=== PATIENT | female | born 1955 | race Caucasian/White ===

== ENCOUNTER 2018-01-01 13:52 | Emergency (ER) | payer OTHER ==
[~2018-01-01] VITALS: Ht 157.5 cm; Wt 55.8 kg
--- NOTE | 2018-01-01 15:46 | CT SCAN REPORT ---
EXAMINATION: CT HEAD AND CERVICAL SPINE. CLINICAL INFORMATION: Fall. Question intracranial hemorrhage. COMPARISON: No relevant prior imaging. TECHNIQUE: Medical Research Assistant images were obtained. CT acquisition of the head and cervical spine was performed without intravenous administration of contrast. Data was reformatted into multiplanar images at the acquisition workstation. DLP: 910.61 mGy-cm. FINDINGS: Head: There is no acute intracranial hemorrhage or abnormal extra-axial collection. No intracranial mass effect or midline shift. Lateral and third ventricles are normal. No hydrocephalus. Puentes-white matter differentiation is grossly preserved and there is no evidence of acute territorial infarct. There is mild swelling of the frontal scalp. The calvarium and skull base are intact. Mastoid air cells and middle ear cavities are well aerated. Visualized paranasal sinuses are well aerated. Cervical spine: There is near-anatomic alignment and position of the vertebral bodies and posterior elements of the cervical spine in the sagittal dimension. 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 Vertebral body heights are preserved. No evidence of acute fracture. No abnormal prevertebral soft tissue swelling. Grossly no evidence of canal compromise uncovertebral joint spurring at C5-C6 causes mild bilateral bony neuroforaminal encroachment. Soft tissues of the neck including the thyroid gland are unremarkable. Visualized lung apices are clear. IMPRESSION: Head: Mild swelling of the frontal scalp. No associated calvarial fracture. No acute intracranial hemorrhage. Cervical spine: No acute cervical spine fracture.
[2018-01-01 16:14] VITALS: BP 160/90
--- NOTE | 2018-01-01 16:22 | ED HEAD/FACIAL INJ COMPLAINT ---
History of Present Illness General Chief Complaint: Fall Stated Complaint: LANDERS, NECK AND SHOULDER PAIN S/P FALL Source: patient Exam Limitations: no limitations Vital Signs & Intake/Output Vital Signs & Intake/Output Vital Signs Date Time Temp Pulse Resp B/P B/P Pulse O2 O2 Flow FiO2 Mean Ox Delivery Rate 01/01 1627 Room Air 01/01 1614 98 18 160/90 99 Room Air 01/01 1357 97.1 78 20 135/80 97 Room Air Allergies Coded Allergies: amoxicillin (From AUGMENTIN) (RASH 01/01/18) bupropion (From WELLBUTRIN) (UNKNOWN 01/01/18) clavulanic acid (From AUGMENTIN) (RASH 01/01/18) doxycycline (UPSET STOMACH 01/01/18) epinephrine (RAPID PULSE 01/01/18) erythromycin base (RASH 01/01/18) hydrochlorothiazide (UNKNOWN 01/01/18) pneumococcal vaccine (SWELLING 01/01/18) tetracycline (From ACHROMYCIN) (RASH 01/01/18) Uncoded Allergies: FLU VACCINE (UPSET STOMACH 01/01/18) IRON SULFATE (UNKNOWN 01/01/18) Triage Note: PT TO ED C/O NECK AND RIGHT SHOULDER PAIN S/P FALLING OFF HER RETAINING WALL THIS AM. HIT HEAD, DENIES LOC. ABRASIONS NOTED TO SHOULDER, RFA, R KNEE, HEMATOMA NOTED TO FOREHEAD. NO C-SPINE TENDERNESS ON PALPATION. Triage Nurses Notes Reviewed? yes Onset: Abrupt Severity: mild Loss of Consciousness: no loss of consciousness HPI: 62-year-old female comes into the emergency room for evaluation of head injury. Patient reports that she was standing on a retaining wall In her yard. She reports that she fell off of it and fell forward onto the leaves and grass and hit her forehead. She felt a crunch in her neck. No loss of consciousness. Mild headache. No vomiting. She went to see her orthopedic doctor. He didn't x-ray of her right shoulder She has some mild shoulder pain. He sent her to the hospital for CT scan of her head and neck. She has a history of von Willebrand' s disease. No anticoagulants. Comes in for further evaluation. (Jelani ROGER,Saul) Past History Travel History Traveled to [place] past 21 day No Medical History Any Pertinent Medical History? see below for history Cardiovascular: hypertension, von willebrand avm Gastrointestinal: irritable bowel syndrome, gi bleed Blood Disorders: anemia Surgical History Surgical History: non-contributory Psychosocial History What is your primary language Bermudian Tobacco Use: Current Daily Use Daily Tobacco Use Amount/Type: =< 4 Cigarettes daily ETOH Use: denies use Illicit Drug Use: denies illicit drug use Family History Hx Contributory? No (Saul Ramos) Review of Systems Review of Systems Constitutional: Reports: no symptoms. EENTM: Reports: no symptoms. Respiratory: Reports: no symptoms. Cardiovascular: Reports: no symptoms. GI: Reports: no symptoms. Genitourinary: Reports: no symptoms. Musculoskeletal: Reports: see HPI. Skin: Reports: no symptoms. Neurological/Psychological: Reports: see HPI. Hematologic/Endocrine: Reports: no symptoms. Immunologic/Allergic: Reports: no symptoms. All Other Systems: Reviewed and Negative (Saul Ramos) Physical Exam Physical Exam General Appearance: well developed/nourished, mild distress Head: ecchymosis (FRONTAL BONE), tenderness Eyes: Bilateral: normal appearance, PERRL, EOMI. Ears, Nose, Throat: normal ENT inspection, hearing grossly normal Neck: normal inspection Respiratory: normal breath sounds, no respiratory distress Cardiovascular: regular rate/rhythm Back: normal inspection Extremities: normal inspection, normal range of motion, no edema Psychiatric: awake, alert, oriented x 3 Cranial Nerves: normal hearing, normal speech, PERRL Coordination/Gait: normal gait Motor/Sensory: no motor/sensory deficits Skin: intact, normal color, warm/dry (Saul Ramos) Progress Differential Diagnosis: corneal abrasion, c-spine injury, facial fracture, globe injury, ICH, orbit fracture, skull fracture Plan of Care: Current Medications Sig/King Start time Last Medication Dose Stop Time Status Admin Acetaminophen 975 MG ONCE ONE 01/01 1630 AC (Tylenol) 01/01 1631 Diagnostic Imaging: Viewed by Me: CT Scan. Discussed w/RAD: CT Scan. Comments: PATIENT: VIDYA FORD PRESENT AGE: 62 PATIENT ACCOUNT NO: [id number] : 55 LOCATION: [facility] ORDERING PHYSICIAN: Dacia ROGER SERVICE DATE: 01/01/18847 EXAM TYPE: CAT - CT CERV SPINE WO IV CONTRAST; CT HEAD WO IV CONTRAST EXAMINATION: CT HEAD AND CERVICAL SPINE. CLINICAL INFORMATION: Fall. Question intracranial hemorrhage. COMPARISON: No relevant prior imaging. TECHNIQUE: Business Unit Director images were obtained. CT acquisition of the head and cervical spine was performed without intravenous administration of contrast. Data was reformatted into multiplanar images at the acquisition workstation. DLP: 910.61 mGy-cm. FINDINGS: Head: There is no acute intracranial hemorrhage or abnormal extra-axial collection. No intracranial mass effect or midline shift. Lateral and third ventricles are normal. No hydrocephalus. Puentes-white matter differentiation is grossly preserved and there is no evidence of acute territorial infarct. There is mild swelling of the frontal scalp. The calvarium and skull base are intact. Mastoid air cells and middle ear cavities are well aerated. Visualized paranasal sinuses are well aerated. Cervical spine: There is near-anatomic alignment and position of the vertebral bodies and posterior elements of the cervical spine in the sagittal dimension. 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 Vertebral body heights are preserved. No evidence of acute fracture. No abnormal prevertebral soft tissue swelling. Grossly no evidence of canal compromise uncovertebral joint spurring at C5-C6 causes mild bilateral bony neuroforaminal encroachment. Soft tissues of the neck including the thyroid gland are unremarkable. Visualized lung apices are clear. IMPRESSION: Head: Mild swelling of the frontal scalp. No associated calvarial fracture. No acute intracranial hemorrhage. Cervical spine: No acute cervical spine fracture. DICTATED BY: Claudio Oscar MD DATE/TIME DICTATED:01/01/181537 KNOTTING MACHINE OPERATOR PORTABLE:PATI DATE/TIME TRANSCRIBED:01/01/181537 CONFIDENTIAL, DO NOT COPY WITHOUT APPROPRIATE AUTHORIZATION. <Electronically signed in Other Vendor System> SIGNED BY: Claudio Oscar MD 01/01 4862 (Saul Ramos) Departure Departure Disposition: HOME OR SELF CARE Condition: Stable Clinical Impression Primary Impression: Head injury Referrals: Carlos Jin MD (PCP/Family) Additional Instructions: Follow-up with primary care doctor. Return if any concerns worsening symptoms. Please go over all results of today's visit with your primary care doctor. Contact your primary care doctor to let them know you were here in the emergency room. There may be nonspecific findings which may not be related to your visit today here in the emergency room but may require further evaluation and chronic monitoring by your primary care doctor. If you had a laceration today the chance of foreign body always remains. You should follow-up with your primary care doctor for recheck in 3-5 days for a wound check. If you had an x-ray done there is a chance that a fracture could have been missed on initial read and you should follow-up with your primary care doctor for repeat x-rays if symptoms persist. If your blood pressure was elevated here in the emergency room please have rechecked by our primary care doctor within the next 48. If you were prescribed a narcotic here in the emergency room or any type of controlled substances you're not allowed to drive while taking this medication or operate any type of heavy machinery. Narcotics can make you feel lightheaded dizziness nausea and can cause constipation. You may need to car pick up driver a stool softener. Thank you for choosing [facility] emergency room. Please return to the emergency room immediately if you have any other concerns worsening of symptoms. Departure Forms: Customer Survey General Discharge Information Comments 01/01/2018 4:29:04 PM Patient clinically looks well. Patient is in no apparent distress. Nontoxic- appearing. Resting comfortably in room. No evidence of acute trauma. Follow- up with PCP. Return if any other concerns. (Saul Ramos) PA/DATA ANALYSIS MANAGER Co-Sign Statement Statement: ED Attending supervision documentation- x I saw and evaluated the patient. I have also reviewed all the pertinent lab results and diagnostic results. I agree with the findings and the plan of care as documented in the PA's/DATA ANALYSIS MANAGER's documentation. [] I have reviewed the ED Record and agree with the PA's/DATA ANALYSIS MANAGER's documentation. [] Additions or exceptions (if any) to the PAs/DATA ANALYSIS MANAGER's note and plan are summarized below: [] (Murray ELLIS,Kolby)
== END 2018-01-01 16:25 ==
LOC: ERH 13:52
DX: S09.90XA Unspecified injury of head, initial encounter (principal); W17.89XA Other fall from one level to another, initial encounter; Y93.89 Activity, other specified